=== PATIENT | female | born 2000 | race Hispanic/Latino ===

== ENCOUNTER 2019-09-05 12:14 | Observation (INO) | payer MEDICAID ==
[~2019-09-05] VITALS: Ht 144.8 cm; Wt 61.7 kg
[2019-09-05] MEDS ORDERED: LACTATED RINGERS 1000ML 1,000 ML IV ONE (13:02)
[2019-09-05 13:18] LABS: APPEARANCE,URINE Clear (CLEAR); BILIRUBIN,URINE Negative (NEGATIVE); COLOR,URINE Yellow (YELLOW); GLUCOSE, URINE (UA) Negative (NEGATIVE); KETONES,URINE Negative (NEGATIVE); LEUKOCYTE ESTERASE ,URINE Moderate (NEGATIVE); NITRATE,URINE Negative (NEGATIVE); OCCULT BLOOD,URINE Negative (NEGATIVE); PROTEIN,URINE Negative (NEGATIVE); UROBILINOGEN,URINE 0.2 mg/dL (0.2-1.0)
[2019-09-05 13:51] LABS: BACTERIA,URINE Moderate /HPF (None Seen); RBC,URINE 0-1 /HPF (0-1); SQUAMOUS EPITHELIAL CELL,UR Few /HPF (0-2); WBC,URINE 0-1 /HPF (0-1)
[2019-09-05 16:46] VITALS: BP 103/69
== END 2019-09-05 16:35 | disposition home or self-care (01) ==
LOC: LDH 12:14
PROVIDERS: ADMIT Specialist; ATTEND Specialist
DX: O62.9 Abnormality of forces of labor, unspecified (principal); Z3A.35 35 weeks gestation of pregnancy
CPT/HCPCS: 81001; 87088; G0378 ×4; J7120 ×2; 96360

== ENCOUNTER 2019-09-23 01:54 | Inpatient (IN) | payer MEDICAID ==
[~2019-09-23] VITALS: Ht 142.2 cm; Wt 55.8 kg
[2019-09-23 02:41] LABS: APPEARANCE,URINE Cloudy (CLEAR); BILIRUBIN,URINE Negative (NEGATIVE); COLOR,URINE Yellow (YELLOW); GLUCOSE, URINE (UA) Negative (NEGATIVE); KETONES,URINE Negative (NEGATIVE); LEUKOCYTE ESTERASE ,URINE Small (NEGATIVE); NITRATE,URINE Negative (NEGATIVE); OCCULT BLOOD,URINE Small (NEGATIVE); PROTEIN,URINE Trace mg/dL (NEGATIVE); UROBILINOGEN,URINE 0.2 mg/dL (0.2-1.0)
[2019-09-23 03:05] VITALS: BP 130/81
[2019-09-23] MEDS ORDERED: PREN1TAB80 PO (03:08)
[2019-09-23 03:11] LABS: BACTERIA,URINE Moderate /HPF (None Seen)
[2019-09-23] MEDS ORDERED: LACTATED RINGERS 1000ML 1,000 ML IV SCH (03:45)
[2019-09-23 04:28] LABS: HEMATOCRIT 31.2 % (36-48); MEAN CORPUSCULAR HEMOGLOBIN 26.8 pg (27.0-33.0); MEAN CORPUSCULAR HGB CONC 32.7 g/dL (32.0-36.0); MEAN CORPUSCULAR VOLUME 81.9 fL (80-100); RED BLOOD CELL COUNT(AUTO) 3.81 MIL/uL (4.00-5.50); WHITE BLOOD COUNT (AUTO) 15.2 K/uL (4.8-10.8)
[2019-09-23] MEDS ORDERED: OXYTOCIN 10 USP UNITS/ML 20 UNIT in LACTATED RINGERS 1000ML 1,000 ML IV SCH (07:00)
[2019-09-23] MEDS ORDERED: OXYTOCIN-LR 20 UNITS/1000 ML 1,000 ML IV SCH (07:15)
[2019-09-23] MEDS ORDERED: AMPICILLIN 2GM+NS 100ML 100 ML IV ONE (18:06)
[2019-09-23] MEDS ORDERED: AMPICILLIN 2GM+NS 100ML 100 ML IV SCH (18:15)
[2019-09-23] MEDS ORDERED: LIDOCAINE HCL 1% 20 ML VIAL ONE (18:44)
[2019-09-23] MEDS ORDERED: CEFAZOLIN SODIUM 1 GM VIAL ONE (19:20)
[2019-09-23] MEDS ORDERED: CALDOLOR 800MG+NS 250ML 250 ML IV ONE (19:21)
[2019-09-23] MEDS ORDERED: ROPIVACAINE 0.5% 5MG/ML 30ML IJ ONE (19:42)
[2019-09-23] MEDS ORDERED: FENTANYL CITRATE PF 50 MCG/1 ML 2ML VIAL ONE (19:43)
[2019-09-23] MEDS ORDERED: OXYTOCIN 10 USP UNITS/ML ONE (19:58)
[2019-09-23] MEDS ORDERED: DURAMORPH PF1 MG/ML 10ML AMP IV ONE (20:15)
[2019-09-23] MEDS ORDERED: ONDANSETRON HCL 4 MG/2 ML VIAL ONE (20:17)
[2019-09-23] MEDS ORDERED: PROMETHAZINE HCL 25 MG/ML 1ML AMPULE IM PRN (20:45)
[2019-09-23] MEDS ORDERED: DEXTROSE 5 %-0.45 % NACL 1,000 ML IV PRN (20:45)
[2019-09-23] MEDS ORDERED: OXYTOCIN-LR 20 UNITS/1000 ML 1,000 ML IV PRN (20:45)
[2019-09-23] MEDS ORDERED: SODIUM CHLORIDE 0.9% 10 ML VIAL IVP PRN (20:45)
[2019-09-23] MEDS ORDERED: MEPERIDINE-PF 75 MG/ML SYG IM PRN (20:45)
[2019-09-23 23:48] VITALS: BP 118/56
[2019-09-24] VITALS (7 sets, daily range): BP systolic 89–124; BP diastolic 44–78
--- NOTE | 2019-09-24 04:00 | NUR ---
status/activity repositioned to right side , tolerated well Addendum: 09/24/19 at 0522 by ANKIT CASTRO LVN Amended: Links added.
[2019-09-24] MEDS: CEFAZOLIN SODIUM 1 GM VIAL IVP SCH ×3 (04:26→21:12)
[2019-09-24] MEDS ORDERED: CALDOLOR 800MG+NS 250ML 250 ML IV SCH (04:45)
[2019-09-24 07:12] LABS: HEMATOCRIT 25.1 % (36-48); MEAN CORPUSCULAR HEMOGLOBIN 27.3 pg (27.0-33.0); MEAN CORPUSCULAR HGB CONC 29.1 g/dL (32.0-36.0); PLATELET COUNT (AUTO) 179 K/uL (130-400); RED BLOOD CELL COUNT(AUTO) 2.67 MIL/uL (4.00-5.50); RED CELL DISTRIBUTION WIDTH 15.1 % (11.0-15.5); WHITE BLOOD COUNT (AUTO) 11.3 K/uL (4.8-10.8)
--- NOTE | 2019-09-24 08:30 | NUR ---
EPIDURAL REMOVAL EPIDURAL REMOVED BY GINGER AMADO. PT TOLERATED WELL AND TIP WAS INTACT.
[2019-09-24] MEDS ORDERED: ROPIVACAINE 0.2% 100ML VIAL 100 ML EP SCH (09:00)
[2019-09-24] MEDS ORDERED: ACETAMINOPHEN-CODEINE 300/30MG TAB PO PRN (10:00)
[2019-09-24] MEDS ORDERED: HYDROCODONE/ACETAMINOPHEN 5/325 MG TAB PO PRN (10:00)
[2019-09-24] MEDS ORDERED: LANOLIN 30GM OINTMENT TP PRN (10:00)
[2019-09-24] MEDS ORDERED: ACETAMINOPHEN EXTRA STRENGTH 500 MG TABLET PO PRN (10:00)
[2019-09-24] MEDS ORDERED: DIPH,PERTUSS(ACELL),TET VAC/PF 0.5 ML VIAL IM SCH (10:00)
[2019-09-24] MEDS ORDERED: BISACODYL 10 MG SUPP.RECT RC PRN (10:00)
[2019-09-24] MEDS ORDERED: MEASLES/MUMPS/RUBELLA VACCINE, LIVE 0.5 ML/VIAL SQ SCH (10:00)
--- NOTE | 2019-09-24 11:27 | NUR ---
[facility] Sw contacted by nursery nurse Payal, who states baby is possibly to stay in hospital 3 to 5 days, mom had c section. SW met with pt who states she lives with her in laws and FOB Gerry Ford [phone]. Pt reports FOB works in [place] and missed of baby. Mother in law at is sleeping in room with pt. Pt reports they were ready for baby ALBANIA FORD's arrival and have basic items and car seat. Dr Sewell will follow baby after dc. Pt has means of transportation to come to see baby until baby is discharged. SW educated on [facility] should need arise.Pt denies any hx of abuse, substance abuse, mental health, or domestic violence issues. Pt denies need for referral or intervention at this time.
[2019-09-24] MEDS: IBUPROFEN 800 MG TAB PO SCH ×2 (12:16→21:13)
[2019-09-24] MEDS: SIMETHICONE 80 MG TAB.CHEW PO PRN ×2 (19:03→21:12)
[2019-09-24] MEDS ORDERED: LIDOCAINE 5% TOPICAL PATCH TP ONE (19:24)
[2019-09-24] MEDS ORDERED: IBUPROFEN 800 MG TAB PO SCH (20:45)
[2019-09-24] MEDS: DOCUSATE SODIUM 100 MG CAP PO SCH (21:12)
--- NOTE | 2019-09-24 23:50 | NUR ---
Patient; Patient went out to the Nursery to visit her baby.
[2019-09-25 02:45] VITALS: BP 98/57
[2019-09-25] MEDS: IBUPROFEN 800 MG TAB PO SCH (04:03)
[2019-09-25] MEDS: CEFAZOLIN SODIUM 1 GM VIAL IVP SCH (04:04)
[2019-09-25 07:27] VITALS: BP 119/78
[2019-09-25] MEDS ORDERED: LIDOCAINE 5% TOPICAL PATCH TP SCH (09:00)
[2019-09-25] MEDS ORDERED: CEPH-578 PO (09:59)
[2019-09-25] MEDS ORDERED: FERS325 PO (09:59)
[2019-09-25] MEDS ORDERED: IBUP-2071 PO (09:59)
[2019-09-25] MEDS ORDERED: DOCU-116 PO (10:00)
[2019-09-25] MEDS ORDERED: ACET1TAB25 PO (10:00)
[2019-09-25] MEDS: DOCUSATE SODIUM 100 MG CAP PO SCH (10:10)
[2019-09-25] MEDS: SIMETHICONE 80 MG TAB.CHEW PO PRN (10:10)
--- NOTE | 2019-09-25 10:20 | NUR ---
verbal and written discharge instructions given, informed of the follow up appointment, prescription given, all questions answered. informed to call the doctor for future concerns. pt voiced understanding to all things discussed. Addendum: 09/25/19 at 1320 by RIVER FRANKLIN RN Amended: Links added.
--- NOTE | 2019-09-25 10:30 | NUR ---
pt is dismissed in stable condition. ambulated to nursery to visit her baby, and will go home after the visit. Addendum: 09/25/19 at 1203 by RIVER FRANKLIN RN Amended: Links added.
[2019-09-26 05:10] LABS: HEPATITIS Bs ANTIGEN SCREEN P Negative (Negative)
== END 2019-09-25 13:20 | disposition home or self-care (01) | DRG 540 ==
LOC: EDH 01:54 → LDH 01:55 → OBSVTOIN 01:55 → WSH 09-24 00:15
PROVIDERS: ADMIT Specialist; ATTEND Specialist
PROC: 10D00Z1 Extraction of Products of Conception, Low, Open Approach (ICD-10-PCS; principal; 2019-09-23 20:11)
PROC: 3E0134Z Introduction of Serum, Toxoid and Vaccine into Subcutaneous Tissue, Percutaneous Approach (ICD-10-PCS; 2019-09-24)
PROC: 3E0234Z Introduction of Serum, Toxoid and Vaccine into Muscle, Percutaneous Approach (ICD-10-PCS; 2019-09-24)
DX: O41.1230 Chorioamnionitis, third trimester, not applicable or unspecified (principal); O62.2 Other uterine inertia; O77.0 Labor and delivery complicated by meconium in amniotic fluid; Z3A.38 38 weeks gestation of pregnancy; Z37.0 Single live birth; Z23 Encounter for immunization; Z82.49 Family history of ischemic heart disease and other diseases of the circulatory system
CPT/HCPCS: 36415; 59510; 81001; 85027; 86592; 86850; 86900; 86901; 87088; 87340; 96360; 96361; A4314; A4344; A4606; G0378; J0290; J0690; J1741; J2274; J2405; J2590; J2795; J3010; J7120